=== PATIENT | male | born 2000 | race Caucasian/White ===

== ENCOUNTER 2019-03-27 05:04 | Emergency (ER) | payer OTHER ==
--- NOTE | 2019-03-27 05:34 | XR ---
EXAM: XR Right Hand Complete, 3 or More Views CLINICAL HISTORY: Pain TECHNIQUE: Frontal, lateral and oblique views of the right hand. COMPARISON: No relevant prior studies available. FINDINGS: Bones/joints: Unremarkable. No acute fracture. No dislocation. Soft tissues: Unremarkable. No radiopaque foreign body. IMPRESSION: Normal right hand x-rays.
--- NOTE | 2019-03-27 06:08 | ED ---
Trauma HPI - General Chief Complaint: Extremity Injury, Upper Stated Complaint: thumb injury Time Seen by Provider: 03/27/19 05:19 Source: patient Mode of arrival: ambulatory Limitations: no limitations - History of Present Illness Initial Comments: Patient is a 18-year-old male presents the emergency department today with pain at the base of the right thumb. Patient reports yesterday evening he was sparring with a friend and believes his friend inadvertently hit his thumb in an awkward position. Patient reports she's had pain in the base of is some consent. He reports full range of motion of the wrist and fingers, he reports he can move the thumb it just hurts to do so. - Related Data Allergies Allergy/AdvReac Type Severity Reaction Status Date / Time No Known Allergies Allergy Verified 03/27/19 05:14 Review of Systems ROS Statement: Those systems with pertinent positive or pertinent negative responses have been documented in the HPI. ROS Other: All systems not noted in ROS Statement are negative. Past Medical History Additional Past Medical History / Comment(s): headache, back pain History of Any Multi-Drug Resistant Organisms: None Reported Past Surgical History: No Surgical Hx Reported Past Psychological History: No Psychological Hx Reported Smoking Status: Current every day smoker Past Alcohol Use History: Daily, Occasional Past Drug Use History: Marijuana General Exam - General Exam Comments Initial Comments: Physical Exam GENERAL: Patient is well-developed and well-nourished. Patient is nontoxic and well-hydrated and is in no distress. Patient smells strongly of marijuana HENT: Normocephalic, Atraumatic. EYES: PERRL, EOMI PULMONARY: Unlabored respirations CARDIOVASCULAR: RRR Warm and well perfused extremities ABDOMEN: Soft and nontender with normal bowel sounds. SKIN: Skin is clear with no lesions or rashes and otherwise unremarkable. : Deferred NEUROLOGIC: Patient is alert and oriented x3. Moving all extremities spontaneously MUSCULOSKELETAL: Normal extremities with adequate strength and full range of motion. No lower extremity swelling or edema. No calf tenderness. Decreased range of motion of the right thumb secondary to pain, no obvious deformities no bruising no swelling there is pain over the anatomic snuffbox PSYCHIATRIC: Normal psychiatric evaluation. Limitations: no limitations Course Vital Signs 03/27/19 05:10 Temperature 98.2 F Pulse Rate 99 Respiratory 14 Rate Blood Pressure 118/71 O2 Sat by Pulse 98 Oximetry Procedures - Orthopedic Splinting/Casting Injury #1 Side: right Upper Extremity Injury Location: finger Upper Extremity Immobilizer: thumb spica Medical Decision Making - Medical Decision Making She was seen and evaluated history was obtained from the patient x-rays were obtained which revealed no acute fracture did discuss with patient the possibility of occult fracture possibility of an identified fracture on x-ray do recommend thumb spica splinting which patient consented to. Splint was placed patient was advised to follow up with primary care or orthopedics. Disposition Clinical Impression: Pain of right thumb Disposition: HOME SELF-CARE Condition: Stable Instructions (If sedation given, give patient instructions): Hand Fracture (ED) Is patient prescribed a controlled substance at d/c from ED?: No Referrals: Naila Powell MD [Primary Care Provider] - 1-2 days [facility] [Provider Group] - 1-2 days
[2019-03-27 06:23] VITALS: BP 126/86; PULSE 88; RESP 20; TEMP 97.7
== END 2019-03-27 06:24 | disposition home or self-care (01) ==
LOC: EC 05:04
DX: M79.644 Pain in right finger(s) (principal); F17.200 Nicotine dependence, unspecified, uncomplicated
CPT/HCPCS: 29125; 99283